=== PATIENT | male | born 1950 | race Caucasian/White ===

== ENCOUNTER 2017-03-30 12:55 | Inpatient (IN) | payer MEDICARE, OTHER ==
--- NOTE | ~2017-03-30 | HP ---
History And Physical [id number] [facility] [place] [place]. [address] NAME: PATRICIA SULLIVAN : 48 STATUS : ADM IN PAT#: [id number] AGE: 66 ADM/REG DATE : 03/30/17 MR#: [id number] REPORT SERV DATE: 03/31/17 DICTATED BY: ANNEMARIE VIVEROS DATE: 03/30/17 REPORT STATUS : Draft TRANSCRIBED BY: MODModesta DATE: 03/30/17 DATE OF ADMISSION: 03/30/2017 POINT OF ENTRY: [facility] Emergency Department. PRIMARY COIN ROLLING MACHINE OPERATOR: Dr. Frances. CHIEF COMPLAINT: Shortness of breath and chest tightness. HISTORY OF PRESENT ILLNESS: Mr. 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 The patient was initially diagnosed inflammatory lung disease during admission to the hospital in 2011. He states that he was on long-term prednisone therapy for approximately 18 months, but then successfully weaned completely off steroids. Unfortunately, patient had to be placed back on steroids beginning of November of this year for recurrent shortness of breath, dyspnea on exertion, exercise limitation, as well as hypoxemia. The patient states that he was titrated from 60 mg daily prednisone down to 30, but then suffered recurrence of his symptoms and is now back to 50 mg daily. There is reportedly an outpatient bronchoscopy scheduled for of this week. The patient was recently placed on outpatient oxygen by Dr. Frances approximately three weeks ago and is currently on about 2 L by nasal cannula during the day, but does not wear it at night. The patient states that he has baseline shortness of breath, as well as dyspnea on exertion and pretty significant exercise limitation, however, he presented to the emergency room today after having exerted himself today trying to get the trash cans back into his house. He was extremely short of breath as well as had some feeling of chest congestion and chest tightness, but denied any recent fevers, night sweats, chills, cough, sputum production, wheezing, or chest pain. Initial evaluation in the emergency department notable for a heart rate of 138. He was saturating well on 4 L by nasal cannula. Labs notable for a white count of 14,400, creatinine is 1.36, BNP is 47, troponin is negative, EKG is nonischemic. ABG was well compensated, but did show some mild hypoxemia. Chest x-ray also was clear. The patient was given IV steroids and DuoNebs and admitted to the Hospitalist Service. REVIEW OF SYSTEMS: Comprehensive review of systems otherwise negative unless listed in history of present illness. PREVIOUS MEDICAL HISTORY: 1. COPD on 2 L nasal cannula during the day. 2. 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 3. Hypertension. History And Physical [address] [address] NAME: PATRICIA SULLIVAN : 49 STATUS : ADM IN PAT#: [id number] AGE: 66 ADM/REG DATE : 03/30/17 MR#: [id number] REPORT SERV DATE: 03/31/17 DICTATED BY: ANNEMARIE VIVEROS DATE: 03/30/17 REPORT STATUS : Draft TRANSCRIBED BY: YULI DATE: 03/30/17 4. Hyperlipidemia. 5. GERD. 6. History of Amaro's esophagus requiring ablation. 7. Osteoarthritis. 8. History of alcohol dependence. 9. History of GI bleed secondary to Amaro's esophagus. SURGICAL HISTORY: 1. Right rotator cuff. 2. Bilateral total hip. 3. Back surgery. ALLERGIES: NO KNOWN DRUG ALLERGIES. HOME MEDICATIONS: 1. Albuterol one inhalation p.r.n. 2. Aspirin 81 mg daily. 3. Atorvastatin 10 mg at bedtime. 4. Celebrex 200 mg at bedtime. 5. Flexeril 10 mg t.i.d. p.r.n. 6. TriCor 145 mg at bedtime. 7. Omeprazole 20 mg b.i.d. 8. Prednisone 50 mg daily. 9. Zoloft 50 mg at bedtime. 10.Valsartan/hydrochlorothiazide one tablet daily. SOCIAL HISTORY: Denies any tobacco, but quit 40 years ago. He drinks about three or four rum drinks daily. Denies any history of alcohol withdrawal, seizures, hallucinations, or delirium tremens. Denies any illicits. FAMILY HISTORY: Mother and father both with lung cancer, they were heavy smokers. Siblings with coronary artery disease. LABS AND IMAGIN. White count 14.4, hemoglobin is 14.3, hematocrit 39.8, platelet count is 193. INR 1.1. 2. Sodium is 134, potassium 3.5, chloride 100, carbon dioxide 24, BUN 11, creatinine 1.36, glucose is 125, calcium 7.5, magnesium 1.7. 3. BNP is 47. Troponin is less than 0.02. 4. ABG; pH is 7.48, pCO2 of 30, PO2 is 100, bicarb is 22, saturating 98% on 4 L nasal cannula. 5. Chest x-ray per my review shows poor technique with some mild cardiomegaly with no evidence of any acute cardiopulmonary abnormality. 6. EKG per my review shows sinus tachycardia with a heart rate of 109 with some septal anterior Q-waves, but no evidence of any acute ischemia or infarction. PHYSICAL EXAMINATION: VITAL SIGNS: Temperature is 96.9 degrees Fahrenheit, pulse initially is 138, respirations History And Physical [address] [address] NAME: PATRICIA SULLIVAN : 49 STATUS : ADM [facility]#: [id number] AGE: 66 ADM/REG DATE : 03/30/17 MR#: [id number] REPORT SERV DATE: 03/31/17 DICTATED BY: ANNEMARIE VIVEROS DATE: 03/30/17 REPORT STATUS : Draft TRANSCRIBED BY: YULI DATE: 03/30/17 21, saturating 93% on 4 L by nasal cannula, blood pressure 130/69. On recheck, pulse is now 112, blood pressure 156/28, saturating 93% on 4 L nasal cannula. GENERAL: The patient is awake, alert, in no acute distress, resting comfortably. He is a well-developed, well-nourished, obese male. is at bedside. HEENT: Atraumatic and normocephalic. Moist mucous membranes. Pupils are equal, round, reactive to light and accommodation. Extraocular eye movements intact. Does have some cushingoid type features. NECK: No JV distention. No carotid bruits. CARDIAC: Tachycardic rate, regular rhythm. No murmurs or gallops. Normal S1, S2. LUNGS: On oxygen and somewhat tachypneic and short of breath, but in no respiratory distress. Does have some decreased breath sounds in the bases, but otherwise, no wheezes, rhonchi, or crackles appreciated. ABDOMEN: Soft, nontender, nondistended. Good bowel sounds. No rebound, guarding, or rigidity. EXTREMITIES: Warm and well perfused. No cyanosis, clubbing, or edema. SKIN: Warm and dry. PSYCH: Affect appropriate. NEURO: Alert and oriented x3. Cranial nerves 2 through 12 grossly intact. Speech is normal. Gait not assessed. ASSESSMENT: Mr. 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 PROBLEM LIST: 1. Acute exacerbation of inflammatory lung disease. 2. COPD. 3. Acute on chronic hypoxic respiratory failure. 4. Sinus tachycardia. 5. Leukocytosis. PLAN: 1. Acute on chronic inflammatory lung disease. We will consult Pulmonology for assistance. We will convert his prednisone 50 over to Solu-Medrol 60 mg IV b.i.d. as he has been steroid responsive in the past. 2. History of COPD. I do not appreciate any COPD exacerbation at this time as he is not wheezing, but we will place him on high-dose steroids as well as DuoNebs and Pulmicort. Hold off on any antibiotics as he is not producing any sputum. 3. Sinus tachycardia. I suspect this is all due to his shortness of breath, and underlying lung disease, however, given worsening hypoxemia, sinus tachycardia, as well as shortness of breath and chest tightness versus chest pain, I am concerned for possible PE. He does deny any pleuritic chest pain at this time. Given his elevated creatinine level, we will initially check a D-dimer to risk stratify. 4. Acute on chronic hypoxemia. Again treat with DuoNebs and steroids and attempt to wean as tolerated. Does not appear to have any pneumonia or volume overload. 5. Leukocytosis, likely steroid induced as he is on chronic prednisone 50. No evidence of History And Physical [address] [address] NAME: PATRICIA SULLIVAN : 48 STATUS : ADM IN [facility]#: [id number] AGE: 66 ADM/REG DATE : 03/30/17 MR#: [id number] REPORT SERV DATE: 03/31/17 DICTATED BY: ANNEMARIE VIVEROS DATE: 03/30/17 REPORT STATUS : Draft TRANSCRIBED BY: YULI DATE: 03/30/17 pneumonia on chest x-ray. 6. DVT prophylaxis. Lovenox subcu. 7. Code status. The patient wishes to be full code. SOFI/YULI Annemarie Viveros MD / [id number] CC: MD Edda Swann M.D. Pamela Sud, M.D.
--- NOTE | ~2017-03-30 | PUL ---
[facility] [address] [place]. [address] NAME: PATRICIA SULLIVAN : 48 STATUS : ADM IN PAT#: [id number] AGE: 66 ADM/REG DATE : 03/30/17 MR#: [id number] REPORT SERV DATE: 04/03/17 DICTATED BY: AMY ANDERSEN DATE: 04/03/17 REPORT STATUS : Draft TRANSCRIBED BY: MODL DATE: 04/03/17 PULMONARY FUNCTION TEST OVERNIGHT OXIMETRY START DATE OF TESTIN04/02/2017. END DATE OF TESTIN04/03/2017. COMMENTS: Testing was conducted with the patient breathing room air. RESULTS: Total valid sampling time was 6 hours 9 minutes and 43 seconds. Total time with an oxygen saturation less than 88% was 6 minutes and 40 seconds. Oxygen desaturation event index was 5.5. IMPRESSION: There was significant desaturation during the study conducted while the patient was breathing room air. Recommend supplemental oxygen at a flow rate of a minimum of 2 L/minute. The oxygen desaturation event index was mildly elevated suggestive of possible sleep apnea. Recommend formal sleep study to confirm if clinically indicated. PS/MODL y Andersen M.D. / [id number] CC: Tasneem Vitale M.D.
--- NOTE | ~2017-03-30 | EGD ---
EGD REPORT [facility] [address] [address] NAME: NICK SULLIVAN : 48 STATUS : DIS IN PAT#: [id number] AGE: 66 ADM/REG DATE : 03/30/17 MR#: [id number] REPORT SERV DATE: 04/08/17 DICTATED BY: LAWRENCE ROSALES DATE: 04/08/17 REPORT STATUS : Draft [facility]ANSCRIBED BY: [facility] DATE: 04/08/17 Pulmonology Patient Name: Nick Sullivan Procedure Date: 04/02/2017 11:27 AM Date of : 1950 Attending MD: CARMELA ROSALES MD Procedure Date No Time: 04/02/2017 Procedure: Bronchoscopy Indications: Interstitial lung disease Providers: CARMELA ROSALES MD Referring MD: PAM FERNANDEZ Medicines: Lidocaine 2% 20 mL Complications: No immediate complications Procedure: Pre-Anesthesia Assessment: - ASA Grade Assessment: III - A patient with severe systemic disease. - A History and Physical has been performed. Patient meds and allergies have been reviewed. The risks and benefits of the procedure and the sedation options and risks were discussed with the patient. All questions were answered and informed consent was obtained. Patient identification and proposed procedure were verified prior to the procedure by the physician and the nurse in the procedure room. Mental Status Examination: alert and oriented. Airway Examination: normal oropharyngeal airway. Respiratory Examination: poor air movement. CV Examination: normal and RRR, no murmurs, no S3 or S4. ASA Grade Assessment: IV - A patient with severe systemic disease that is a constant threat to life. After reviewing the risks and benefits, the patient was deemed in satisfactory condition to undergo the procedure. The anesthesia plan was to use general anesthesia. Immediately prior to administration of medications, the patient was re-assessed for adequacy to receive sedatives. The heart rate, respiratory rate, oxygen saturations, blood pressure, adequacy of pulmonary ventilation, and response to care were monitored throughout the procedure. The physical status of the patient was re-assessed after the procedure. After obtaining informed consent, the Bronchoscope was introduced through the mouth, via the endotracheal tube (the patient was intubated for the procedure) and advanced to the tracheobronchial tree. The procedure was accomplished without difficulty. The patient tolerated the procedure well. EGD REPORT [place] [place]. [address] NAME: NICK SULLIVAN : 48 STATUS : DIS IN PAT#: [id number] AGE: 66 ADM/REG DATE : 03/30/17 MR#: [id number] REPORT SERV DATE: 04/08/17 DICTATED BY: LAWRENCE ROSALES DATE: 04/08/17 REPORT STATUS : Draft TRANSCRIBED BY: [employer] DATE: 04/08/17 Findings: The laryngeal mask airway is in normal position. The vocal cords move normally with breathing. The subglottic space is normal. The trachea is of normal caliber. The michel is sharp. The tracheobronchial tree was examined to at least the first subsegmental level. Bronchial mucosa and anatomy are normal; there are no endobronchial lesions, and no secretions. Bronchoalveolar lavage was performed in the right middle lobe of the lung and sent for cell count, bacterial culture, viral smears \T\ culture, fungal \T\ AFB analysis and compromised host protocol. 180 mL of fluid were instilled. 50 mL were returned. The return was cellular and clear. Fluoroscopically guided transbronchial brushings were obtained in the right middle lobe of the lung and sent for routine cytology and bacterial, AFB and fungal analysis. Two samples were obtained. Impression: - Interstitial lung disease (BOOP/TECHNICAL BUYER) - The examination was normal. - Bronchoalveolar lavage was performed. - Fluoroscopically guided transbronchial brushings were obtained. Recommendation: - Await test results. - Chest X-ray. - Follow up with dispatch machine runner tomorrow. Attending Participation: I personally performed the entire procedure. CARMELA ROSALES MD 04/02/2017 12:31 PM This report has been signed electronically. Number of Addenda: 0 Note Initiated On: 04/02/2017 11:27 AM [address] [address]
--- NOTE | ~2017-03-30 | CN ---
Consultation Report [facility] [address] [place]. [address] NAME: PATRICIA SULLIVAN : [birth year] STATUS : ADM IN PAT#: [id number] AGE: 66 ADM/REG DATE : 03/30/17 MR#: [id number] REPORT SERV DATE: 04/01/17 DICTATED BY: STEVO HDZ DATE: 04/01/17 REPORT STATUS : Draft TRANSCRIBED BY: YULI DATE: 04/01/17 CONSULTATION DATE OF CONSULTATION: 04/01/2017 REASON FOR CONSULTATION: Dyspnea on exertion. PRIMARY HEALTHCARE PROF: Alex Sanches M.D. HISTORY OF PRESENT ILLNESS: Mr. Sullivan is a 66-year-old gentleman known [facility] (sees Dr. Sanches) with a history of CAD, heavy tobacco smoking (former, quit in 1984), hyperlipidemia, hypertension, obesity, BOOP years ago, GERD, and alcohol abuse, who is admitted on 03/30/2017 with severe shortness of breath that has been progressive as of November of this year. He states that he has had an episode like this in the past, at which point in time, he was diagnosed with BOOP, this was years ago, however, resolved spontaneously after finishing some course of antibiotics. He had been doing fairly well up until November of this year. At which point in time, he started to develop significant shortness of breath. Per his , who is a former RN, he progressed from this standpoint, prompting presentation to [facility] for further evaluation and care. Given history of coronary artery disease noted on CT scan in December of his chest demonstrating moderate coronary atherosclerosis, we have been consulted to provide recommendations and input regarding the role this may be playing in his ongoing dyspnea with exertion. In speaking with the patient, he frankly denies having any overt chest pains or chest pressures. He states that his primary issue is with breathing both at rest and with exertion. His symptoms have been again progressive since November. He has significant rest dyspnea as well as exertional dyspnea. He denies having any palpitations or blacking out recently. PAST MEDICAL HISTORY: As above. FAMILY HISTORY: Noncontributory for premature cardiovascular disease. SOCIAL HISTORY: The patient is a former heavy tobacco smoker, lives with his . Using illicit drugs. He has a history of significant alcohol abuse as well. ALLERGIES: NO KNOWN DRUG ALLERGIES. HOME MEDICATIONS: 1. Albuterol. 2. Aspirin. 3. Atorvastatin. 4. Celebrex. 5. Flexeril. 6. TriCor. 7. Prilosec. Consultation Report [place] [id number] [place]. [address] NAME: PATRICIA SULLIVAN : 48 STATUS : ADM IN PAT#: [id number] AGE: 66 ADM/REG DATE : 03/30/17 MR#: [id number] REPORT SERV DATE: 04/01/17 DICTATED BY: STEVO HDZ DATE: 04/01/17 REPORT STATUS : Draft TRANSCRIBED BY: YULI DATE: 04/01/17 8. Prednisone. 9. Zoloft. 10.Diovan. PHYSICAL EXAMINATION: VITAL SIGNS: Blood pressure 135/66, pulse 109 (sinus tachycardia), and temperature 97.8. GENERAL: Morbidly obese, deconditioned, chronically ill, mild distress. NEURO: Awake, alert and oriented x3; no focal deficits, appropriate mood. HEENT: Moist mucous membranes, anicteric sclerae, no nasal discharge. NECK: No JVD, no carotid bruit. RESPIRATORY: Increased work of breathing, sitting in bed, rales throughout bilateral lungs with occasional rhonchi. No wheezing CARDIAC: Regular rate and rhythm. Normal S1, S2. No murmurs, rubs, or gallops. ABD: Soft, non-tender, non-distended, no rebound or guarding. EXTREMITIES: Cool with mottling noted throughout his lower extremities bilaterally. 1+ pulses bilateral lower extremities. No edema. SKIN: Warm, dry and intact; no rash. PERTINENT TEST FINDINGS: Potassium 4.4, creatinine 1.26. White blood cell count 14.2. Cardiac enzymes negative x2 sets with CK 55 and 44, MB 1.2 and 1.1, troponin less than 0.02 and less than 0.02. His BNP is 47.5. His TSH is 0.69. An EKG from date of admission demonstrates sinus tachycardia, left axis deviation, left anterior fascicular block, and no ischemic changes. IMPRESSION AND PLAN: Mr. Sullivan is a pleasant 66-year-old gentleman with an extensive pulmonary history including bronchiolitis obliterans with organizing pneumonia, significant chronic obstructive pulmonary disease, as well as coronary atherosclerosis, found incidentally on CT with a negative recent stress MPI as well as normal echocardiogram, who was admitted with hypoxemic respiratory failure of poorly defined etiology. Looking at his collective findings, in particular the fact that he has not had any overt chest pains or pressures, no ischemic changes on his EKG, normal cardiac enzymes x2 sets, and normal BNP, I do not believe that the cardiac causes playing a significant role in his dyspnea at rest and with exertion at this time. I do think that it will be critical for him to follow closely with Pulmonary, and agree with proceeding with the plan for bronchoscopy tomorrow as per Pulmonary's discretion. Otherwise, it will be imperative for him to continue his cardiovascular medications including but not limited to, aspirin, statin, and his antihypertensives. I do recommend that he follow up with Dr. Sanches in about six to eight weeks, at which point in time, if he has persisting severe dyspnea on exertion and Pulmonary feels that his lungs have been fully optimized and/or no longer active from an inflammatory/BOOP perspective (or otherwise), then he may consider further evaluation of his coronaries at that time. I will sign off at this time. Please feel free to call with questions. Consultation Report [place] [id number] [facility] [place]. [address] NAME: PATRICIA SULLIVAN : 48 STATUS : ADM IN [facility]#: [id number] AGE: 66 ADM/REG DATE : 03/30/17 MR#: [id number] REPORT SERV DATE: 04/01/17 DICTATED BY: STEVO HDZ DATE: 04/01/17 REPORT STATUS : Draft TRANSCRIBED BY: YULI DATE: 04/01/17 CHRISTINE/YULI Stevo Hdz MD / [id number] CC: Raudel Orona M.D. Edda Washington M.D.
--- NOTE | ~2017-03-30 | EGD ---
EGD REPORT [facility] [address] [address] NAME: NICK SULLIVAN : 48 STATUS : DIS IN PAT#: [id number] AGE: 66 ADM/REG DATE : 03/30/17 MR#: [id number] REPORT SERV DATE: 04/08/17 DICTATED BY: LAWRENCE ROSALES DATE: 04/08/17 REPORT STATUS : Draft TRANSCRIBED BY: [facility] DATE: 04/08/17 Pulmonology Patient Name: Nick Sullivan Procedure Date: 04/02/2017 11:27 AM Date of : 1950 Attending MD: CARMELA ROSALES MD Procedure Date No Time: 04/02/2017 Procedure: Bronchoscopy Indications: Interstitial lung disease Providers: CARMELA ROSALES MD Referring MD: PAM FERNANDEZ Medicines: Lidocaine 2% 20 mL Complications: No immediate complications Procedure: Pre-Anesthesia Assessment: - ASA Grade Assessment: III - A patient with severe systemic disease. - A History and Physical has been performed. Patient meds and allergies have been reviewed. The risks and benefits of the procedure and the sedation options and risks were discussed with the patient. All questions were answered and informed consent was obtained. Patient identification and proposed procedure were verified prior to the procedure by the physician and the nurse in the procedure room. Mental Status Examination: alert and oriented. Airway Examination: normal oropharyngeal airway. Respiratory Examination: poor air movement. CV Examination: normal and RRR, no murmurs, no S3 or S4. ASA Grade Assessment: IV - A patient with severe systemic disease that is a constant threat to life. After reviewing the risks and benefits, the patient was deemed in satisfactory condition to undergo the procedure. The anesthesia plan was to use general anesthesia. Immediately prior to administration of medications, the patient was re-assessed for adequacy to receive sedatives. The heart rate, respiratory rate, oxygen saturations, blood pressure, adequacy of pulmonary ventilation, and response to care were monitored throughout the procedure. The physical status of the patient was re-assessed after the procedure. After obtaining informed consent, the Bronchoscope was introduced through the mouth, via the endotracheal tube (the patient was intubated for the procedure) and advanced to the tracheobronchial tree. The procedure was accomplished without difficulty. The patient tolerated the procedure well. EGD REPORT [id number] [place]. [address] NAME: NICK SULLIVAN : 48 STATUS : DIS IN PAT#: [id number] AGE: 66 ADM/REG DATE : 03/30/17 MR#: [id number] REPORT SERV DATE: 04/08/17 DICTATED BY: LAWRENCE ROSALES DATE: 04/08/17 REPORT STATUS : Draft TRANSCRIBED BY: [employer] DATE: 04/08/17 Findings: The laryngeal mask airway is in normal position. The vocal cords move normally with breathing. The subglottic space is normal. The trachea is of normal caliber. The michel is sharp. The tracheobronchial tree was examined to at least the first subsegmental level. Bronchial mucosa and anatomy are normal; there are no endobronchial lesions, and no secretions. Bronchoalveolar lavage was performed in the right middle lobe of the lung and sent for cell count, bacterial culture, viral smears \T\ culture, fungal \T\ AFB analysis and compromised host protocol. 180 mL of fluid were instilled. 50 mL were returned. The return was cellular and clear. Fluoroscopically guided transbronchial brushings were obtained in the right middle lobe of the lung and sent for routine cytology and bacterial, AFB and fungal analysis. Two samples were obtained. Impression: - Interstitial lung disease (BOOP/TIRE BUILDER) - The examination was normal. - Bronchoalveolar lavage was performed. - Fluoroscopically guided transbronchial brushings were obtained. Recommendation: - Await test results. - Chest X-ray. - Follow up with buyer renter tomorrow. Attending Participation: I personally performed the entire procedure. CARMELA ROSALES MD 04/02/2017 12:31 PM This report has been signed electronically. Number of Addenda: 0 Note Initiated On: 04/02/2017 11:27 AM [address] [address]
--- NOTE | ~2017-03-30 | DS ---
Discharge Summary [facility] [address] [place]. [address] NAME: PATRICIA SULLIVAN : 48 STATUS : DIS IN PAT#: [id number] AGE: 66 ADM/REG DATE : 03/30/17 MR#: [id number] REPORT SERV DATE: 04/04/17 DICTATED BY: BRAEDEN ANDERSEN DATE: 04/03/17 REPORT STATUS : Draft TRANSCRIBED BY: MODL DATE: 04/03/17 ADMISSION DATE: 03/30/2017 DISCHARGE DATE: 04/03/2017 DISCHARGE DIAGNOSES: 1. Acute on chronic hypoxemic respiratory failure. 2. Scattered ground-glass opacities, primarily affecting the lung bases per CT imaging, 03/17/2017. 3. Chronic interstitial lung disease per CT imaging, 03/17/2017. 4. Mild bronchiectasis per CT imaging, 03/17/2017. 5. Mild chronic obstructive pulmonary disease per CT imaging, 03/17/2017. 6. Nocturnal hypoxemia per overnight oximetry. Outpatient sleep study to be performed. 7. Mild oropharyngeal dysphagia with mild delay of triggered swallow per modified barium swallow this admission. 8. Tachycardia. 9. Hypertension. 10.Hyperlipidemia. 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 12.Gastroesophageal reflux disease. 13.History of gastrointestinal bleed, upper. 14.Iatrogenic Jessica's. 15.Steroid-induced diabetes. 16.B12 deficiency, on replacement. 17.Elevated ferritin. 18.Coronary artery disease by CT imaging. 19.Anxiety and depression. 20.Tremor. 21.Acute kidney injury, probably related to volume and medications. 22.Chronic kidney disease, uncertain stage. 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 OPERATIONS AND PROCEDURES: Bronchoscopy with bronchoalveolar lavage and fluoroscopically- guided transbronchial biopsies, 04/02/2017, Dr. Xiong. PRESENT ILLNESS: This is a 66-year-old white male who was triaged in the emergency room on 03/30/2017 at 1126 hours complaining of shortness of breath. Admission vital signs: Blood pressure 113/59, temp 96.9, pulse 138, respirations 21, and O2 sat 97% on 4 L. After evaluation in the emergency room, he was referred to the Hospitalist Service for admission. He was seen by Dr. Josue Goncalves and admitted as described on admission history and physical examination. Significant history included a hospitalization here in 2011. 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 No lung biopsy was done at that time. He was treated with prednisone for approximately 18 months and then was successfully weaned off corticosteroids. He had a 3- Discharge Summary [facility] [id number] [place]. 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 He is followed in the [facility]. He was started back on corticosteroids by Dr. Frances. He did not think that he responded as he had in 2011. Steroids were tapered with some improvement, but then the symptoms recurred. On the day of admission, he had worsening dyspnea on exertion and some chest tightness. ADDITIONAL HISTORY: Per Dr. Goncalves. PHYSICAL EXAMINATION: Per Dr. Goncalves. ADMISSION LABORATORY: Per Dr. Goncalves. HOSPITAL COURSE: He was admitted by Dr. Goncalves with assessment: 1. Acute exacerbation of inflammatory lung disease. 2. COPD. 3. Acute on chronic hypoxic respiratory failure. 4. Sinus tachycardia. 5. Leukocytosis. He was admitted to [address] [place] [address]. He was placed on IV Solu-Medrol. He was placed on a full complement of bronchodilators. Cardiology and Pulmonary consultations were obtained. His hospitalist care was assumed by the undersigned. He was seen by Dr. Nye for [facility] Cardiology (sees Dr. Sanches). Dr. Nye noted that he had had a recent negative stress MVI and echocardiogram. He thought that his symptoms were pulmonary in nature and not cardiac and did not suggest further cardiac evaluation. He was seen by Dr. Frances. Additional diagnostic studies were suggested to evaluate for chronic lung disease associated with connective tissue disease as well as chronic thromboembolic disease. The patient has also been scheduled to have a bronchoscopy on 04/02/2017, it was felt this should be performed with lavage and brushings. His evaluation here included a V/Q lung scan. Perfusion was normal. There was no evidence of chronic thromboembolic disease. He was evaluated for aspiration with a modified barium swallow study. He had mild oropharyngeal dysphagia with mild delay of triggered swallow. Aspiration precautions and oral care were recommended. An echocardiogram was done to re-evaluate his left and right ventricular function and his pulmonary pressures. Left ventricular and right ventricular systolic function were normal. He did not appear to have pulmonary hypertension. On 04/02/2017, he was taken to the pulmonary lab by Dr. Xiong where he underwent bronchoscopy, bronchoalveolar lavage, and fluoroscopically-guided transbronchial biopsies. Discharge Summary [address] [address] NAME: PATRICIA SULLIVAN : 48 STATUS : DIS IN [facility]#: [id number] AGE: 66 ADM/REG DATE : 03/30/17 MR#: [id number] REPORT SERV DATE: 04/04/17 DICTATED BY: BRAEDEN ANDERSEN DATE: 04/03/17 REPORT STATUS : Draft TRANSCRIBED BY: YULI DATE: 04/03/17 There were no complications with this procedure. Post bronchoscopy, he actually felt better. Because of the concern for sleep-disordered breathing, an overnight oximetry study was performed. Total time with an oxygen saturation less than 88% was 6 minutes and 40 seconds. Supplemental oxygen at a flow rate of minimum of 2 L/min was recommended with formal sleep study evaluation in the outpatient setting. By the time of discharge, he had no cough. His dyspnea was improved. His rest room air sat was 94 to 95, but with walking, he quickly desaturated to 85, but maintained a sat of 93 on 2 L of O2. Additional issues while hospitalized included a creatinine of 1.36 on admission having been 1.0 on 01/29/2017. An evaluation included a urinalysis which was normal. Renal ultrasound imaging was normal. A post void residual was negligible. He had been using some NSAIDs and it was suggested that he discontinue these and have a followup BMP within the next week. Associated with his n.p.o. status and testing, he did have a bump in his creatinine to 1.48, but it was 1.39 at discharge. In 2011, he had a ferritin of 1270. A followup was 402. He was found to be B12 deficient in 2011 with a B12 of 174. A followup value was 692, and he was encouraged to take his B12 on a regular basis. A TSH was normal at 0.691, RA quant less than 10, BNP normal at 47.5, and hemoglobin A1c. 6.2. An SOPHIA was less than 1:40. While hospitalized, blood sugars varied from 76 to 248 associated with higher dose corticosteroid administration. On the day of discharge, fasting was 96 and before meals lunch of 78. By 04/03/2017, it was felt with his clinical improvement and diagnostic evaluation as noted above completed that he could be safely discharged home with outpatient followup to see Dr. Frances in one week. Bronchoscopy study should be available at that time. He will have O2 at 2 L/min by nasal cannula 24 hours per day. Outpatient pulmonary rehab was recommended as well as a formal sleep study. In addition to Dr. Frances, he will follow up with Dr. Edda Washington and Dr. Sanches. DISCHARGE MEDICATIONS: Aspirin 81 mg daily, Lipitor 10 mg daily, TriCor 145 mg daily, Prilosec 20 mg twice daily, Zoloft 50 mg at bedtime, prednisone 30 mg daily, Tylenol as needed, Flexeril 10 mg three times daily as needed, DuoNeb four times daily and q.2 hours as needed. He was advised to restart his Diovan/HCT 320/12.5 on Thursday. Discharge Summary [address] [address] NAME: PATRICIA SULLIVAN : 48 STATUS : DIS IN PAT#: [id number] AGE: 66 ADM/REG DATE : 03/30/17 MR#: [id number] REPORT SERV DATE: 04/04/17 DICTATED BY: BRAEDEN ANDERSEN DATE: 04/03/17 REPORT STATUS : Draft TRANSCRIBED BY: YULI DATE: 04/03/17 Discharge time greater than 30 minutes. DICTATED BY: Braeden Andersen M.D. DD/YULI Braeden Andersen M.D. / [id number] CC: Tasneem Vitale M.D. Mark Thel, M.D. Pamela Sud, M.D.
--- NOTE | ~2017-03-30 | CN ---
Consultation Report [facility] [address] [place]. [address] NAME: PATRICIA SULLIVAN : 48 STATUS : ADM IN PAT#: [id number] AGE: 66 ADM/REG DATE : 03/30/17 MR#: [id number] REPORT SERV DATE: 03/31/17 DICTATED BY: AMY ANDERSEN DATE: 03/31/17 REPORT STATUS : Draft TRANSCRIBED BY: MODL DATE: 03/31/17 PULMONARY CONSULTATION DATE OF CONSULTATION: 03/31/2017 REASON FOR CONSULTATION: Dyspnea and hypoxia. HISTORY OF PRESENT ILLNESS: Mr. Sullivan is a 66-year-old white male, former smoker, known to me from the outpatient Pulmonary Clinic, who has mild COPD, hypoxia, and a history of presumptive cryptogenic organizing pneumonia in 2011, who was admitted with severe shortness of breath and associated chest discomfort/heaviness with exertion yesterday. The patient states he moved a garbage can down his driveway without using supplemental oxygen and developed the symptoms as described. He then presented here and was subsequently admitted. He has a history of presumptive cryptogenic organizing pneumonia in 2011 as noted. He states that he was admitted to this facility with severe shortness of breath and hypoxia requiring an ICU stay. At that time, presumptive diagnosis was made based on chest imaging including a CT scan of the chest that revealed significant diffuse ground-glass infiltrates throughout both lungs. His symptoms, at that time, responded to prednisone starting at 60 mg daily and tapered over the course of 18 months. Since then, he has not had pulmonary symptoms. He was followed for approximately two years as an outpatient by our Pulmonary office and as he was asymptomatic, he was discharged. He did well with no recurrence of his symptoms until 12/2016. He developed profound weakness and some shortness of breath that "felt just like the other time with BOOP". So he presented to the emergency room. He had a CT scan of the chest done in the emergency room here on 12/29/2016, that revealed some interstitial fibrosis and ground-glass opacities. He was started back on prednisone 60 mg once daily at that time. He had complete resolution of his symptoms and then presented to me in the outpatient pulmonary office. As he was asymptomatic at that time, his prednisone was weaned slowly over the course of several weeks to 40 mg once daily. At the dose of 40 mg once daily, he had return of significant weakness and malaise as well as dyspnea. His dose was increased to 50 mg once daily and had a subsequent evaluation in the Pulmonary office. He was found to be hypoxic, and supplemental oxygen was ordered for him due to an oxygen saturation of 88% with walking. He presented here yesterday on prednisone 50 mg once daily. It is notable that he had pulmonary function testing done as an outpatient that revealed mild COPD only. As part of his evaluation, he had a CT scan of the chest 03/17/2017, due to his ongoing hypoxia that revealed minimal ground-glass opacities and interstitial fibrosis, essentially unchanged from 12/2016. He states that as an outpatient, he has been checking his oxygen saturations for the past several weeks and they have been as low as 84% on room air with exertion that returned to within normal limits at rest. It is notable that he has a history of coronary artery disease and workup per his order entry specialist 01/2017 including a stress test and an echocardiogram are within normal limits. Currently, he states he feels much better after treatment with Solu-Medrol, nebulized steroids, supplemental oxygen, and bronchodilators. He still does complain of dyspnea on Consultation Report [address] [place]. [address] NAME: PATRICIA SULLIVAN : 48 STATUS : ADM IN [facility]#: [id number] AGE: 66 ADM/REG DATE : 03/30/17 MR#: [id number] REPORT SERV DATE: 03/31/17 DICTATED BY: AMY ANDERSEN DATE: 03/31/17 REPORT STATUS : Draft TRANSCRIBED BY: MODModesta DATE: 03/31/17 exertion and chest heaviness. PAST MEDICAL HISTORY: 1. Presumed cryptogenic organizing pneumonia in 2011 as described above, responded to prednisone for 18 months. 2. Former smoker. 3. Recently diagnosed hypoxia-awaiting supplemental oxygen. 4. Coronary artery disease. 5. Hyperlipidemia. 6. GERD with a history of Amaro's esophagus. 7. Degenerative joint disease/osteoarthritis. 8. Prior GI bleed. 9. Previous back surgery. 10.Bilateral total hip arthroplasty. 11.Right rotator cuff surgery. 12.Depression/anxiety. FAMILY HISTORY: Smoker mother and smoker father, both from lung cancer. SOCIAL HISTORY: Mr. Sullivan smoked up to two packs of cigarettes per day for 15 years and quit at 37 years of age. He denies past/present drug use, chewing tobacco, or occupational exposures. He drinks 3 to 4 cocktails daily. He is and has no children. MEDICATIONS: Outpatient and inpatient medications were reviewed and are as documented in the record. His only outpatient pulmonary medication was albuterol as needed. REVIEW OF SYSTEMS: A 10 point system review was conducted and is remarkable for the symptoms as described in the history of present illness. It is notable that his GERD is well controlled with his current medication regimen. He denies symptoms suggestive of obstructive sleep apnea. PHYSICAL EXAMINATION: VITAL SIGNS: Temperature 98.3 degrees, heart rate 111, blood pressure 123/73, respiratory rate 21, and oxygen saturation 95% on supplemental oxygen at a flow rate of 2 L/minute. GENERAL: Anxious appearing white male. Alert, oriented, no apparent distress. HEENT: Normocephalic. Atraumatic. There is no scleral icterus. The conjunctivae are clear. The oropharynx is clear. NECK: Supple. No lymphadenopathy was noted. LUNGS: Good effort. There are diminished breath sounds at both bases. The lungs are clear to auscultation bilaterally. HEART: Regular tachycardia. ABDOMEN: Soft. Nontender. Distended with air. There are normal bowel sounds in all four quadrants. BILATERAL EXTREMITIES: There is no clubbing, cyanosis, or edema. NEUROLOGICAL: There is a significant tremor noted. There are no other abnormalities noted. Consultation Report [address] [place]. [address] NAME: PATRICIA SULLIVAN : 48 STATUS : ADM IN [facility]#: [id number] AGE: 66 ADM/REG DATE : 03/30/17 MR#: [id number] REPORT SERV DATE: 03/31/17 DICTATED BY: AMY ANDERSEN DATE: 03/31/17 REPORT STATUS : Draft TRANSCRIBED BY: MODL DATE: 03/31/17 The neurological exam is grossly nonfocal. SKIN: No rashes were noted. LABORATORY RESULTS: The labs were reviewed and are as documented in the record. Notable labs include a white blood cell count of 14.2. The BNP is 47.5. The troponin on admission was less than 0.02. The D-dimer is less than 0.27. An arterial blood gas done on admission revealed a pH of 7.48, pCO2 of 31, and pO2 of 100 on 36% supplemental oxygen. IMAGING: The CT scan of the chest done as an outpatient on 03/17/2017, revealed scattered basilar ground-glass opacities with mild fibrosis and minimal bronchiectasis. The chest x-ray done this admission did not reveal any infiltrates, effusions, or nodules. The heart is normal size. ASSESSMENT AND PLAN: Mr. Sullivan is a 66-year-old white male, former smoker, with shortness of breath, hypoxia, and ground-glass opacities noted on CT scan of the chest. He has a history of presumptive cryptogenic organizing pneumonia as noted above though no diagnostic procedures were undertaken at that time. He also has mild chronic obstructive pulmonary disease. He was admitted with shortness of breath and chest heaviness. As an outpatient, he has had a poor response to systemic steroids. His dyspnea and hypoxia seem out of proportion to the findings on a CT scan of the chest. Recommend additional workup. A bronchoscopy was planned as an outpatient for 04/02/2017. We discussed this at length and though the yield of this procedure is low, it may provide some information. The patient and his would like to proceed, so this will remain on a schedule and he can have it as an inpatient. As noted, his hypoxia and dyspnea seem out of proportion to his CT scan findings. We would recommend evaluating him for possible inflammatory lung disease including the rheumatological workup as well as the bronchoscopy as described above. He has not had any benefit from prednisone with regard to his breathing but is developing some adverse effects including tremor. His prednisone dose will be decreased to 40 mg once daily. We will check a V/Q scan to assess for possible pulmonary embolism. Recommend rechecking his echocardiogram though his echocardiogram done 01/2017, did not reveal any significant abnormalities. The patient does have significant chest discomfort. We will consult Cardiology after his echocardiogram to reassess. With regard to his COPD, he will be treated with bronchodilators and nebulized steroids. Consultation Report [address] [address] NAME: PATRICIA SULLIVAN : 48 STATUS : ADM IN [facility]#: [id number] AGE: 66 ADM/REG DATE : 03/30/17 MR#: [id number] REPORT SERV DATE: 03/31/17 DICTATED BY: AMY ANDERSEN DATE: 03/31/17 REPORT STATUS : Draft TRANSCRIBED BY: YULI DATE: 03/31/17 Oxygen will be titrated as needed to maintain his oxygen saturations. Further recommendations to follow after additional information is available. Thank you very much for this consultation. ELSY/YULI y Andersen M.D. / [id number] CC: Tasneem Vitale M.D.
[2017-03-30 12:23] LABS: BASOPHILS 0.1 %; BASOPHILS ABSOLUTE 0.01 10/3/uL (0.0-0.16); EOSINOPHILS 0.2 %; EOSINOPHILS ABSOLUTE 0.03 10/3/uL (0.0-0.53); HEMOGLOBIN 14.3 g/dL (13.6-17.8); IMMATURE GRANULOCYTES 1.5 %; IMMATURE GRANULOCYTES ABSOLUTE 0.22 10/3/uL (0.0-0.11); LYMPHOCYTES 6.9 %; MEAN CORPUS HGB CONC 35.9 g/dL (32.0-36.0); MEAN CORPUSCULAR HEMOGLOB 34.6 pg (26.0-34.0); MEAN CORPUSCULAR VOLUME 96.4 fL (80-100); MEAN PLATELET VOLUME 9.3 fL (9.2-13.0); MONOCYTES 6.8 %; MONOCYTES ABSOLUTE 0.98 10/3/uL (0.21-1.20); NEUTROPHILS 84.5 %; NEUTROPHILS ABSOLUTE 12.18 10/3/uL (2.02-8.40); PLATELET COUNT 193 10/3/uL (150-400); RBC DISTRIBUTION WIDTH 13.6 % (12.0-16.0); RED CELL COUNT 4.13 10/6/uL (4.7-6.1)
[2017-03-30 12:25] LABS: ER CBC TAT 0 Hrs 07 Mins; HEMATOCRIT 39.8 % (40.0-51.0); MANUAL DIFF NO %; WHITE BLOOD CELLS 14.4 10/3/uL (4.5-10.5)
[2017-03-30 12:31] LABS: INTERNATIONAL NORMAL RATI 1.1 UNITS (-)
[2017-03-30 12:42] LABS: ALLENS TEST Pos; BE (BASE EXCESS) -0.1 MEQ/L (0 +/- 2.5); CARBOXYHEMOGLOBIN 1.3 % (0-3); DEVICE NC; HCO3 (ACTUAL BICARBONATE) 22.5 MEQ/L (23-27); HEMOBLOGIN CONTENT 14.6 G/DL (14-18); INSTRUMENT SERIAL # 8087; METHEMOGLOBIN 0.3 % (0-3); O2 CONTENT 19.8 VOL% (18-24); OPERATOR ID 32214; PCO2 (CO2 TENSION) 31 MMHG (35-45); PO2 (O2 TENSION) 100 MMHG (79-93); SAMPLE Arterial; pH 7.48 (7.37-7.43)
[2017-03-30 12:43] LABS: CHEST PAIN PROFILE TAT 0 Hrs 25 Mins; CHLORIDE, SERUM 100 MMOL/L (96-112); CREATININE 1.36 MG/DL (0.70-1.30); GFR AFRICAN AMERICAN 62 ML/MIN (>=60); GFR NON AFRICAN AMERICAN 53 ML/MIN (>=60); POTASSIUM, SERUM 3.5 MMOL/L (3.5-5.3); TROPONIN I <0.02 NG/ML (<0.05)
[2017-03-30 12:44] LABS: BUN (BLOOD UREA NITROGEN) 11 MG/DL (6-23); CALCIUM, SERUM 7.5 MG/DL (8.5-10.4); CO2 (CARBON DIOXIDE) 24 MMOL/L (24-34); GLUCOSE, SERUM 125 MG/DL (60-99); SODIUM, SERUM 134 MMOL/L (135-148)
[~2017-03-30 12:55] MED LIST: ACIPHEX PO; DCN100 PO; DIOV160 PO; FLEXERIL5 MG PO; LAM250 PO; MULTIPLE VIT PO; MULTIVIT/MIN PO; P5 PO; STERAPRED DS10 MG; ULTRAM50 PO; VYTORIN 10/40 T1 TAB PO
[2017-03-30] MEDS ORDERED: DIOVAN HC2 PO (14:12)
[2017-03-30] MEDS ORDERED: LIPITOR10 PO (14:12)
[2017-03-30] MEDS ORDERED: ZOL50 PO (14:13)
[2017-03-30] MEDS ORDERED: TRICOR145 PO (14:13)
[2017-03-30] MEDS ORDERED: PRILO PO (14:13)
[2017-03-30] MEDS ORDERED: FLEX PO (14:14)
[2017-03-30] MEDS ORDERED: PRED50B PO (14:15)
[2017-03-30] MEDS ORDERED: HALF81 PO (14:15)
[2017-03-30] MEDS ORDERED: CELEBREX2 PO (14:16)
[2017-03-30] MEDS ORDERED: ALBUTEROL5 INH (14:16)
[2017-03-30 15:24] LABS: PARTIAL THROMBO TIME 24.7 SEC (22.5-37.2)
[2017-03-30 15:49] LABS: PROTIME (NOT ORD) 13.8 SEC (12.0-14.5)
[2017-03-30 15:50] LABS: D-DIMER QUANTITATIVE < 0.27 ug/mLFEU (< 0.50)
[2017-03-30 17:25] LABS: CK-MB 1.2 NG/ML; CPK 55 U/L (0-200)
[2017-03-30 18:43] LABS: CPK 44 U/L (0-200); TROPONIN I <0.02 NG/ML (<0.05)
[2017-03-30 18:44] LABS: CK-MB 1.1 NG/ML
[2017-03-31 06:19] LABS: HEMOGLOBIN 15.1 g/dL (13.6-17.8); MEAN CORPUSCULAR HEMOGLOB 34.6 pg (26.0-34.0); MEAN CORPUSCULAR VOLUME 96.3 fL (80-100); MEAN PLATELET VOLUME 9.1 fL (9.2-13.0); PLATELET COUNT 204 10/3/uL (150-400); RBC DISTRIBUTION WIDTH 13.8 % (12.0-16.0); RED CELL COUNT 4.36 10/6/uL (4.7-6.1); WHITE BLOOD CELLS 14.2 10/3/uL (4.5-10.5)
[2017-03-31 06:21] LABS: MANUAL DIFF YES %
[2017-03-31 06:31] LABS: CHLORIDE, SERUM 98 MMOL/L (96-112); CO2 (CARBON DIOXIDE) 23 MMOL/L (24-34); CREATININE 1.45 MG/DL (0.70-1.30); GFR AFRICAN AMERICAN 57 ML/MIN (>=60); GFR NON AFRICAN AMERICAN 49 ML/MIN (>=60); SODIUM, SERUM 135 MMOL/L (135-148)
[2017-03-31 06:35] LABS: BUN (BLOOD UREA NITROGEN) 18 MG/DL (6-23); CALCIUM, SERUM 9.4 MG/DL (8.5-10.4); GLUCOSE, SERUM 186 MG/DL (60-99); POTASSIUM, SERUM 4.4 MMOL/L (3.5-5.3)
[2017-03-31 06:41] LABS: BAND NEUTROPHILS 1 %; LYMPHOCYTES 3 %; LYMPHOCYTES ABSOLUTE (CALC) 0.43 10/3/uL (0.67-4.30); MONOCYTES 1 %; MONOCYTES ABSOLUTE (CALC) 0.14 10/3/uL (0.21-1.20); NEUTROPHILS ABSOLUTE (CALC) 13.63 10/3/uL (2.02-8.40); PLATELET ESTIMATE ADQ (ADEQUATE); RBC MORPHOLOGY NORM (NORMAL); SEGMENTED NEUTROPHIL (0) 95 %; TOTAL NUCLEATED CELLS 100
[2017-03-31 20:20] LABS: FERRITIN 402 NG/ML (26-388); IRON BINDING CAPACITY 376 MCG/DL (250-450); IRON, SERUM 79 MCG/DL (35-150)
[2017-03-31 20:21] LABS: ULTRASENSITIVE TSH 0.691 MCIU/ML (0.358-3.740)
[2017-03-31 23:44] LABS: WBC (NOT ORDERED) (RFLEX) 0 (0-5)
[2017-04-01 04:35] LABS: ASCORBIC ACID (UR NOT ORDER) NEG (NEG); BILIRUBIN, URINE NEGATIVE (NEG); KETONE, URINE NEGATIVE (NEG); LEUKOCYTE ESTERASE(NOT OR NEG (NEG)
[2017-04-01 05:48] LABS: BUN (BLOOD UREA NITROGEN) 25 MG/DL (6-23); CALCIUM, SERUM 9.1 MG/DL (8.5-10.4); CHLORIDE, SERUM 96 MMOL/L (96-112); CO2 (CARBON DIOXIDE) 28 MMOL/L (24-34); CREATININE 1.26 MG/DL (0.70-1.30); GFR AFRICAN AMERICAN 68 ML/MIN (>=60); GFR NON AFRICAN AMERICAN 59 ML/MIN (>=60); GLUCOSE, SERUM 109 MG/DL (60-99); POTASSIUM, SERUM 4.4 MMOL/L (3.5-5.3); RHEUMATOID FACTOR QUANT < 10 IU/ML (0-15); SODIUM, SERUM 131 MMOL/L (135-148)
[2017-04-01 06:51] LABS: PROCALCITONIN <0.05 ng/mL (<0.5)
[2017-04-01 11:57] LABS: ANA TITER <1:40 TITER
[2017-04-02 06:51] LABS: INTERNATIONAL NORMAL RATI 1.1 UNITS (-); PARTIAL THROMBO TIME 26.9 SEC (22.5-37.2); PROTIME (NOT ORD) 13.7 SEC (12.0-14.5)
[2017-04-02 07:00] LABS: CHLORIDE, SERUM 101 MMOL/L (96-112); CO2 (CARBON DIOXIDE) 27 MMOL/L (24-34); CREATININE 1.28 MG/DL (0.70-1.30); GFR AFRICAN AMERICAN 67 ML/MIN (>=60); GFR NON AFRICAN AMERICAN 58 ML/MIN (>=60); GLUCOSE, SERUM 92 MG/DL (60-99); POTASSIUM, SERUM 4.4 MMOL/L (3.5-5.3); SODIUM, SERUM 136 MMOL/L (135-148)
[2017-04-02 07:01] LABS: BUN (BLOOD UREA NITROGEN) 29 MG/DL (6-23)
[2017-04-02 16:02] LABS: BD FL LYMPH (NOT ORD) 21 %; BD FL SOURCE (NOT ORD) BAL RML; BF BASO (NOT OF) 0 %; BF LARGE MONONUCLEAR 54 %; BF TOTAL CELL CT (NOT ORD 234 /MM3; BODY FLUID EOS (NOT ORD) 0 %; BODY FLUID RBC (NOT ORD) 1000 /MM3; BODY FLUID SEG (NOT ORD) 25 %
[2017-04-02 17:25] LABS: BUN (BLOOD UREA NITROGEN) 32 MG/DL (6-23); CALCIUM, SERUM 8.9 MG/DL (8.5-10.4); CHLORIDE, SERUM 100 MMOL/L (96-112); CO2 (CARBON DIOXIDE) 27 MMOL/L (24-34); CREATININE 1.48 MG/DL (0.70-1.30); GFR AFRICAN AMERICAN 56 ML/MIN (>=60); GFR NON AFRICAN AMERICAN 48 ML/MIN (>=60); GLUCOSE, SERUM 145 MG/DL (60-99); POTASSIUM, SERUM 4.3 MMOL/L (3.5-5.3); SODIUM, SERUM 136 MMOL/L (135-148)
[2017-04-03 09:04] LABS: BUN (BLOOD UREA NITROGEN) 30 MG/DL (6-23); CHLORIDE, SERUM 100 MMOL/L (96-112); CO2 (CARBON DIOXIDE) 25 MMOL/L (24-34); CREATININE 1.39 MG/DL (0.70-1.30); GFR AFRICAN AMERICAN 60 ML/MIN (>=60); GFR NON AFRICAN AMERICAN 52 ML/MIN (>=60); POTASSIUM, SERUM 4.6 MMOL/L (3.5-5.3); SODIUM, SERUM 135 MMOL/L (135-148)
[2017-04-03 09:06] LABS: GLUCOSE, SERUM 87 MG/DL (60-99)
[2017-04-03] MEDS ORDERED: P10 PO (15:35)
[2017-04-03] MEDS ORDERED: T PO (15:36)
[2017-04-03] MEDS ORDERED: DUONEB INH (15:39)
[2017-04-03 21:27] LABS: ANCA <1:20 (()); MYELOPEROXIDASE ANTIBODY <0.2 AI (<1.0); PROTEINASE 3 ANTIBODY <0.2 AI (<1.0)
== END 2017-04-03 17:13 | disposition home or self-care (01) | DRG 167 ==
LOC: ER 12:55 → 6NO 15:45
PROVIDERS: Emergency Medicine; Internal Medicine
PROC: 0BBD8ZX Excision of Right Middle Lung Lobe, Via Natural or Artificial Opening Endoscopic, Diagnostic (ICD-10-PCS; principal; 2017-04-02 11:00)
PROC: 0B958ZX Drainage of Right Middle Lobe Bronchus, Via Natural or Artificial Opening Endoscopic, Diagnostic (ICD-10-PCS; 2017-04-02 11:00)
DX: J96.21 Acute and chronic respiratory failure with hypoxia (principal); N17.9 Acute kidney failure, unspecified; J84.10 Pulmonary fibrosis, unspecified; E09.22 Drug or chemical induced diabetes mellitus with diabetic chronic kidney disease; R13.12 Dysphagia, oropharyngeal phase; E24.2 Drug-induced Cushing's syndrome; J44.9 Chronic obstructive pulmonary disease, unspecified; I12.9 Hypertensive chronic kidney disease with stage 1 through stage 4 chronic kidney disease, or unspecified chronic kidney disease; K21.9 Gastro-esophageal reflux disease without esophagitis; T38.0X5A Adverse effect of glucocorticoids and synthetic analogues, initial encounter; E53.8 Deficiency of other specified B group vitamins; E78.5 Hyperlipidemia, unspecified; I25.10 Atherosclerotic heart disease of native coronary artery without angina pectoris; F41.9 Anxiety disorder, unspecified; F32.9 Major depressive disorder, single episode, unspecified; N18.9 Chronic kidney disease, unspecified; E66.9 Obesity, unspecified; Z68.29 Body mass index [BMI] 29.0-29.9, adult; Z87.891 Personal history of nicotine dependence
CPT/HCPCS: 36600; 71010; 71020; 74230; 76775; 78582; 80048; 81001; 82550; 82553; 82607; 82728; 82805; 82962; 83036; 83516; 83516-59; 83540; 83550; 83735; 83880; 84145; 84439; 84443; 84484; 85025; 85379; 85610; 85730; 86039; 86255; 86431; 87015; 87070; 87101; 87102; 87116; 87205; 87252; 88112; 89051; 92611-GN; 93005; 93306; 94640; 94762; 96374; 99285; A9270-GY; A9540; A9567; G8996-CI-GN; G8997-CI-GN; G8998-CI-GN; J2250; J2370; J2405; J2930; J3010